=== PATIENT | male | born 1975 | race Caucasian/White ===

== ENCOUNTER 2018-04-13 15:37 | Emergency (ER) | payer OTHER, SELFPAY ==
[2018-04-13 15:38] VITALS: BP 129/75; PULSE 73; RESP 16; TEMP 37.1; O2SAT 97; BMI 26.9
[2018-04-13] MEDS: 0.9% Normal Saline 1,000 ML 1000 ML IV (16:06)
[2018-04-13 16:23] LABS: Absolute Lymphocyte Count 1.57 X10^3/ul (0.83-4.51); Absolute Neutrophil Count 3.2 X10^3/uL (2.0-7.7); Basophil# 0.01 X10^3/uL; Basophil% 0.2 % (0-1); Eosinophil# 0.05 X10^3/uL; Hematocrit 48.3 % (40-54); Hemoglobin 16.3 g/dl (13.0-16.5); Lymphocyte # 1.57 X10^3/ul (4.0); Lymphocyte % 30.4 % (19-41); Mean Corp Hgb Conc 33.7 g/gl (32-36); Mean Corpuscular Hgb 28.8 pg (27.0-32.0); Mean Corpuscular Volume 85.5 fL (80-94); Mean Platelet Vol. 10.9 fl (6.2-12.0); Monocyte# 0.34 X10^3/uL; Monocyte% 6.6 % (0-10); Neutrophil # 3.18 X10^3/uL (2.7-7.7); Neutrophil % 61.6 % (47-70); Platelet Count 161 K/mm3 (150-450); RBC Distribution Width CV 12.5 % (11.6-14.6); RBC Distribution Width SD 39.5 fl (35.1-43.9); Red Blood Count 5.65 M/mm3 (4.6-6.2); White Blood Count 5.2 K/mm3 (4.4-11.0)
[2018-04-13 16:26] LABS: POSITIVE COUNT NO; POSITIVE DIFFERENTIAL NO; POSITIVE MORPHOLOGY NO
[2018-04-13 16:37] LABS: Anion Gap 12 (5-15); BUN 14 mg/dL (7-18); BUN/Creat Ratio 13.5 RATIO (10-20); Calcium,Total 8.6 mg/dL (8.5-10.1); Chloride 108 mmol/L (98-107); Creatinine, Serum 1.04 mg/dL (0.70-1.30); EST Glomerular Filtration Rate 82 mL/min (>60); Est Glom Filt Rate - Afr Amer 100 mL/min (>60); Estimated Creatinine Clearance 87.69 ml/min; Glucose 89 mg/dL (74-106); Potassium 3.6 mmol/L (3.5-5.1); Sodium Level 146 mmol/L (136-145)
[2018-04-13 17:46] VITALS: RESP 16
--- NOTE | 2018-04-13 17:46 | ED.VISSUMM ---
- ER Visit Summary Date of Service: 04/13/18 Chief Complaint: Left arm numbness and weakness History of Present Illness: The patient is a 42 M with no primary care physician. He reports that on March 27 he had surgery to repair left clavicle by Dr. José Miguel Mccullough at [facility]. Reports that April 01 the arm became numb and weak. He saw Dr. Mccullough the day after this began and had x-rays which were negative. He was told that he does not have an explanation for this. Patient does complain of dull left clavicle pain 6-10 worst 510 currently. Is worsened by movement relieved by rest. He denies any numbness or weakness in his right arm, face, or legs. Physical Examination: Vitals: Stable. Afebrile. General: Well-nourished and well-developed. Head: Normocephalic atraumatic. Neck: Supple, no lymphadenopathy. No JVD. Nontender. Cardiovascular: Regular rate and rhythm. No murmurs. Respiratory: No respiratory distress. Clear to auscultation bilaterally. Abdominal: Soft, nontender, nondistended, normal bowel sounds. No guarding, rebound, or peritoneal signs. Back: Nontender. Extremities: Incision over his left clavicle is healing well. Is clean, dry, and intact. There is no erythema or warmth to suggest an infection. There is no induration or fluctuance. Skin: Normal color, no rash. Neurologic: Alert and oriented ?3. Cranial nerves II through XII are intact. Decreased to light touch throughout his entire left arm. 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 5 out of 5 on the right. He has 5 out of 5 radial and ulnar motor function on the right and left. He has a 2+ left biceps and triceps reflex. Psych: Normal affect. Test Results: CBC is normal. Chem-7 is more for sodium 146 and chloride 108. Clinical Impression(s) from Imaging Studies Brain CT 04/13/18 15:57 IMPRESSION: Normal unenhanced CT scan of the brain. Electronically Signed: Elieser Holman MD at 17:18 EDT , Service support , Chest CT 04/13/18 15:58 IMPRESSION: 1. Minimal linear fibrotic and/or atelectatic changes of the posterior lung bases. 2. Healing nondisplaced fractures of the left third, fourth, and fifth ribs. 3. Fixation plate noted along the dorsal aspect of the left clavicular shaft. There is limited visualization of the adjacent soft tissues due to scanning artifact. Electronically Signed: Elieser Holman MD at 17:26 EDT , Service support , Emergency Department Course and Treatment: Patient is resting comfortably without complaint. Treatment Plan: Discussed the patient at this time I do not have an explanation for his paresthesias and weakness. I suggested that he follow-up with Dr. José Miguel Mccullough again for reevaluation. Also follow-up his primary care physician for further evaluation as well. Return to the emergency department for any worsening symptoms. Disposition: To home in improved and stable condition. Impression: 1. Paresthesias/weakness left arm, uncertain cause. 2. 16 days status post left clavicle repair. This note was generated with [employer] software. It may contain incorrect words, spelling, and punctuation that were not noted in review of the chart prior to signing ED Disposition - Plan for ED Patient: Disposition: Home or Assisted Living Chief Complaint: Upper Extremity Injury Instructions: ED Paraesthesias Referrals: Doctor,Your [STAFF PHYSICIAN] - Additional Instructions: Follow up with Dr. Mccullough as soon as possible.
[2018-04-13 17:57] VITALS: BP 118/73; PULSE 58; RESP 16; O2SAT 98
--- NOTE | 2018-04-13 17:57 | ED.RN ---
REVIEWED D/C INSTRUCTIONS, FOLLOW UP CARE, AND S/S THAT WOULD WARRANT A RETURN TO THE ED WITH PT. PT VERBALIZED AN UNDERSTANDING AND DENIES FURTHER QUESTIONS FOR THIS RN. PT SKIN P/W/D, RESP EVEN AND UNLABORED, PT A&O X 3, NO DISTRESS NOTED. PT AMBULATED OUT OF ED, GAIT STEADY.
== END 2018-04-13 17:58 | disposition home or self-care (01) ==
LOC: ED 17:31
PROVIDERS: Emergency Provider Emergency Medicine
DX: R20.2 Paresthesia of skin (principal); R53.1 Weakness; Z98.890 Other specified postprocedural states
CPT/HCPCS: 70450; 71260; 80048; 85025; 96360; 99283; J7030; A4216

== ENCOUNTER → 2024-08-30 | Outpatient (CLI) | payer OTHER, SELFPAY ==
[2024-08-30 22:02] LABS: Absolute Lymphocyte Count 1.07 X10^3/uL (0.83-4.51); Absolute Neutrophil Count 1.6 X10^3/uL (2.0-7.7); Basophil# 0.02 X10^3/uL; Basophil% 0.7 % (0-1); Eosinophil# 0.01 X10^3/uL; Eosinophils% 0.3 % (0-5); Hematocrit 48.6 % (40-54); Hemoglobin 16.8 g/dL (13.0-16.5); Lymphocyte # 1.07 X10^3/ul (0.83-4.51); Lymphocyte % 35.4 % (19-41); Mean Corp Hgb Conc 34.6 g/dL (32-36); Mean Corpuscular Volume 80.9 fL (80-94); Mean Platelet Vol. 11.6 fl (6.2-12.0); Monocyte# 0.27 X10^3/uL; Monocyte% 8.9 % (0-10); NRBC Flagged by Analyzer 0 % (0-5); Neutrophil # 1.64 X10^3/uL (2.7-7.7); Neutrophil % 54.4 % (47-70); Platelet Count 149 K/mm3 (150-450); RBC Distribution Width CV 11.9 % (11.6-14.6); RBC Distribution Width SD 34.8 fl (35.1-43.9); Red Blood Count 6.01 M/mm3 (4.6-6.2)
[2024-08-30 22:09] LABS: ALB/GLOB Ratio 1.1 RATIO (0.9-2.4); AST(SGOT) 21 U/L (15-37); Alanine Aminotransfer ALT/SGPT 28 U/L (16-61); Albumin, Serum 3.7 g/dL (3.2-5.0); Alkaline Phosphatase 46 U/L (45-117); Anion Gap 7 (5-15); BUN 15 mg/dL (7-18); BUN/Creat Ratio 14.4 RATIO (10-20); Calcium,Total 8.4 mg/dL (8.5-10.1); Chloride 102 mmol/L (98-107); Cholesterol 157 mg/dL (200); Creatinine, Serum 1.04 mg/dL (0.70-1.30); EST Glomerular Filtration Rate 80 mL/min (>60); Est Glom Filt Rate - Afr Amer 97 mL/min (>60); Globulin 3.4 g/dL (2.2-4.2); Glucose 100 mg/dL (74-106); High Density Lipoprotein 53 mg/dL; PSA,Total - Annual Screen 0.89 ng/mL (0.00-4.00); Potassium 3.9 mmol/L (3.5-5.1); Protein, Total 7.1 g/dL (6.4-8.2); Sodium Level 136 mmol/L (136-145); Triglycerides 70 mg/dL; Very Low Density Lipoprotein 14 mg/dL (5-40)
== END | disposition home or self-care (01) ==
PROVIDERS: PCP Nurse Practitioner; Referring Provider Nurse Practitioner; Visit Provider Nurse Practitioner
DX: R68.83 Chills (without fever) (principal); H66.91 Otitis media, unspecified, right ear; D64.9 Anemia, unspecified; R53.83 Other fatigue